=== PATIENT | female | born 2000 | race American Indian/Alaskan Native ===

== ENCOUNTER 2019-02-11 15:40 | Emergency (ER) | payer OTHER ==
--- NOTE | 2019-02-11 16:29 | Event Note ---
ED Screening Note Date of service: 02/11/19 Time: 16:19 ED Screening Note: This is a 18 y.o. F. that presents to the ER with vaginal discharge. Shes currently taking mylan control pills x 3 years. States reoccurring discharge that is unresolved with Monistat cream. This initial assessment/diagnostic orders/clinical plan/treatment(s) is/are subject to change based on patients health status, clinical progression and re- assessment by fellow clinical providers in the ED. Further treatment and workup at subsequent clinical providers discretion. Patient/guardian urged not to elope from the ED as their condition may be serious if not clinically assessed and managed. Initial orders include: Pelvic exam and labs
[2019-02-11 17:08] LABS: Bacteria,Urine 2+ /HPF (Negative); Bilirubin,Urine NEG (Negative); Blood,Urine SM (Negative); Color,Urine Yellow (Yellow); Mucus,Urine 1+ /HPF; Protein,Urine <15 mg/dL mg/dL (Negative); Urobilinogen,Urine < 2.0 mg/dL (<2.0)
[2019-02-11 17:09] LABS: HCG Qualitative,Urine Negative (Negative)
--- NOTE | 2019-02-11 19:09 | Emergency Department Report ---
ED Female HPI - General Chief complaint: Urogenital-Female Stated complaint: CHECK UP Time Seen by Provider: 02/11/19 16:18 Source: patient, family Mode of arrival: Ambulatory Limitations: No Limitations - History of Present Illness Initial comments: 18-year-old female here reported that she has a yeast infection she has a thick white vaginal discharge for 2 days with itching. Denies any odor. Denies any vaginal bleeding or abdominal pain. Denies nausea or vomiting. She denies any concerns for STDs. Denies any back pain. Denies than urinary frequency urgency but reports some burning with urination. She has had similar episode we will yeast infection in the past. No recent antibiotics taken. MD Complaint: vaginal discharge Onset/Timin -: days(s) Severity scale (0 -10): 0 Are you Now?: No Last Menstrual Period: 02/02/19 EDC: 11/09/19 Associated Symptoms: vaginal discharge, dysuria. denies: vaginal bleeding, abdominal pain, nausea/vomiting, fever/chills, headaches, loss of appetite, hematuria, rash, seizure, shortness of breath, syncope, weakness - Related Data Sexually active: No Previous Rx's Medication Instructions Recorded Last Taken Type Fluconazole [Diflucan TAB] 100 mg PO QDAY 2 Days #2 tablet 02/11/19 Unknown Rx Sulfamethoxazole/Trimethoprim 1 each PO BID 10 Days #20 tablet 02/11/19 Unknown Rx [Bactrim DS TAB] Allergies Allergy/AdvReac Type Severity Reaction Status Date / Time No Known Allergies Allergy Unverified 02/11/19 15:41 ED Review of Systems ROS: Stated complaint: CHECK UP Other details as noted in HPI Constitutional: denies: chills, fever Respiratory: denies: cough, shortness of breath, wheezing Cardiovascular: denies: chest pain, palpitations, edema, syncope Gastrointestinal: denies: abdominal pain, nausea, vomiting, diarrhea, constipation, hematemesis, melena, hematochezia Genitourinary: dysuria, discharge. denies: urgency, frequency, hematuria, abnormal menses Skin: denies: rash Neurological: denies: headache, paresthesias ED Past Medical Hx - Past Medical History Previous Medical History?: No - Surgical History Past Surgical History?: No - Family History Family history: no significant - Social History Smoking Status: Never Smoker Substance Use Type: None - Medications Home Medications: Home Medications Medication Instructions Recorded Confirmed Last Taken Type Fluconazole [Diflucan TAB] 100 mg PO QDAY 2 Days #2 tablet 02/11/19 Unknown Rx Sulfamethoxazole/Trimethoprim 1 each PO BID 10 Days #20 tablet 02/11/19 Unknown Rx [Bactrim DS TAB] ED Physical Exam - General Limitations: No Limitations General appearance: alert, in no apparent distress - Head Head exam: Present: atraumatic, normocephalic - Eye Eye exam: Present: normal appearance, PERRL, EOMI - ENT ENT exam: Present: normal exam, normal orophraynx, mucous membranes moist - Neck Neck exam: Present: normal inspection, full ROM. Absent: tenderness - Respiratory Respiratory exam: Present: normal lung sounds bilaterally. Absent: respiratory distress, chest wall tenderness - Cardiovascular Cardiovascular Exam: Present: regular rate, normal rhythm, normal heart sounds - GI/Abdominal GI/Abdominal exam: Present: soft, normal bowel sounds. Absent: distended, tenderness, guarding, rebound, rigid - Extremities Exam Extremities exam: Present: normal inspection, full ROM, pedal edema - Back Exam Back exam: Present: normal inspection, full ROM. Absent: CVA tenderness (R), CVA tenderness (L) - Neurological Exam Neurological exam: Present: alert, oriented X3, normal gait - Psychiatric Psychiatric exam: Present: normal affect, normal mood - Skin Skin exam: Present: warm, dry, intact, normal color. Absent: rash ED Course Vital Signs 02/11/19 15:41 Temperature 98 F Pulse Rate 72 Respiratory 16 Rate Blood Pressure 135/87 O2 Sat by Pulse 100 Oximetry - Reevaluation(s) Reevaluation #1: 02/11/19 19:26 Patient stable in no acute distress. No complaints at present. Patient urinary tract infection and will be treated and referred to outpatient primary care ED Medical Decision Making - Lab Data Lab Results 02/11/19 Range/Units 16:30 Urine Color Yellow (Yellow) Urine Turbidity Cloudy (Clear) Urine pH 5.0 (5.0-7.0) Ur Specific [place] 1.024 (1.003-1.030) Urine Protein <15 mg/dl (Negative) mg/dL Urine Glucose (UA) Neg (Negative) mg/dL Urine Ketones Neg (Negative) mg/dL Urine Blood Sm (Negative) Urine Nitrite Neg (Negative) Urine Bilirubin Neg (Negative) Urine Urobilinogen < 2.0 (<2.0) mg/dL Ur Leukocyte Esterase Lg (Negative) Urine WBC (Auto) 13.0 H (0.0-6.0) /HPF Urine RBC (Auto) 5.0 (0.0-6.0) /HPF U Epithel Cells (Auto) 13.0 (0-13.0) /HPF Urine Bacteria (Auto) 2+ (Negative) /HPF Urine Mucus 1+ /HPF Urine HCG, Qual Negative (Negative) Urine culture pending - Medical Decision Making 18-year-old patient found to have a urinary tract infection. Urinalysis positive for bacterial infection, negative for . Patient reports vaginal discharge and had similar episode in the past and reports that it feels that she has a yeast infection. She is not concerned for STDs as she says she is not sexually active at present. I offered to treat patient empirically for gonorrhea and chlamydia and she says she has not concerned for having any sexually transmitted disease. I discussed her urinalysis reports with her along with diagnosis and treatment plan. Patient will be treated empirically subjective diagnosis of yeast infection. Vital signs are stable she is afebrile. Urine culture pending. Patient discharged home in stable condition with prescription for Bactrim DS and Diflucan on with instructions. She is to follow up with primary care in 2-3 days Critical care attestation.: If time is entered above; I have spent that time in minutes in the direct care of this critically ill patient, excluding procedure time. ED Disposition Clinical Impression: Yeast infection of the vagina, Acute cystitis without hematuria, Vaginal discharge Disposition: DC TO HOME OR SELFCARE Is pt being admited?: No Does the pt Need Aspirin: No Condition: Stable Instructions: Vaginitis (ED), Urinary Tract Infection in Women (ED) Additional Instructions: Please follow up with a primary care physician in 2-3 days and if you do not have a primary care physician follow-up at [facility] Take medication as prescribed If his symptoms worsen, return to the emergency room. Referrals: [facility] [Outside] - 2-3 Days Forms: Work/School Release Form(ED)
[2019-02-11 19:49] VITALS: BP 116/74
== END 2019-02-11 19:49 | disposition home or self-care (01) ==
LOC: ED 15:40
DX: B37.3 Candidiasis of vulva and vagina (principal); N30.00 Acute cystitis without hematuria
CPT/HCPCS: 81001; 81025; 87086